=== PATIENT | female | born 1950 | race Caucasian/White ===

== ENCOUNTER 2019-10-19 08:27 | Outpatient (CLI) | payer MEDICARE ==
[~2019-10-19 08:27] MED LIST: FEXO180T
[2019-10-19] MEDS ORDERED: MULT-516 PO (09:08)
[2019-10-19] MEDS ORDERED: MULT-706 PO (09:08)
[2019-10-19] MEDS ORDERED: PANT500T PO (09:08)
[2019-10-19] MEDS ORDERED: SIMV20TA19 PO (09:08)
[2019-10-19] MEDS ORDERED: APPLE CIDER VINEGAR PO (09:08)
[2019-10-19] MEDS ORDERED: BEEF LIVER PO (09:08)
[2019-10-19] MEDS ORDERED: [UNRECOGNIZED DRUG - OTHER] PO (09:08)
[2019-10-19] MEDS ORDERED: CHOL10003 PO (09:08)
[2019-10-19] MEDS ORDERED: [UNRECOGNIZED DRUG - OTHER] PO (09:08)
[2019-10-19] MEDS ORDERED: ACAI500C PO (09:08)
[2019-10-19] MEDS ORDERED: POME250C2 PO (09:08)
[2019-10-19] MEDS ORDERED: ZINC PO (09:08)
[2019-10-19] MEDS ORDERED: CYAN25009 PO (09:08)
[2019-10-19] MEDS ORDERED: GARLIC PO (09:08)
[2019-10-19] MEDS ORDERED: TURM1CAP PO (09:08)
[2019-10-19] MEDS ORDERED: CINN500C2 PO (09:08)
[2019-10-19] MEDS ORDERED: OMEG1CAP25 PO (09:08)
[2019-10-19] MEDS ORDERED: [UNRECOGNIZED DRUG - OTHER] PO (09:08)
== END 2019-10-19 23:59 | disposition home or self-care (01) ==
LOC: STAR 08:27
PROVIDERS: ATTEND Obstetrics & Gynecology Female Pelvic Medicine and Reconstructive Surgery
DX: Z01.818 Encounter for other preprocedural examination (principal); N39.3 Stress incontinence (female) (male); N81.2 Incomplete uterovaginal prolapse; N81.6 Rectocele
CPT/HCPCS: 93005

== ENCOUNTER 2019-10-23 12:29 | Day surgery (SDC) | payer MEDICARE ==
[~2019-10-23] VITALS: Ht 165.1 cm; Wt 70.7 kg
[~2019-10-23 12:29] MED LIST changes: +ACAI500C PO; +APPLE CIDER VINEGAR PO; +BEEF LIVER PO; +BUPIVACAINE/PF 0.25% ONE; +CHOL10003 PO; +CINN500C2 PO; +CYAN25009 PO; +EPINEPHRINE 1 MG/ML, 1ML ONE; +GARLIC PO; +MULT-516 PO; +MULT-706 PO; +NEOMY/POLYMYXIN B GU IRR. 1 ML ONE; +OMEG1CAP25 PO; +PANT500T PO; +POME250C2 PO; +SIMV20TA19 PO; +TURM1CAP PO; +ZINC PO; +[UNRECOGNIZED DRUG - OTHER] PO; +[UNRECOGNIZED DRUG - OTHER] PO; +[UNRECOGNIZED DRUG - OTHER] PO
[2019-10-23 12:54] VITALS: BP 129/80
[2019-10-23] MEDS ORDERED: LACTATED RINGERS 1,000 ML IV SCH (12:55)
[2019-10-23] MEDS ORDERED: GABAPENTIN 300 MG CAPSULE PO STA (12:55)
[2019-10-23] MEDS ORDERED: ACETAMINOPHEN 500 MG TABLET PO STA (12:55)
[2019-10-23] MEDS ORDERED: SCOPOLAMINE 1MG PATCH TD STA (12:58)
[2019-10-23] MEDS ORDERED: ONDANSETRON 2MG/ML, 2ML IVPush STA (13:20)
[2019-10-23] MEDS ORDERED: ONDANSETRON 2MG/ML, 2ML ONE ×2 (13:21→17:08)
[2019-10-23] MEDS ORDERED: MIDAZOLAM 1 MG/ML, 2ML ONE (16:51)
[2019-10-23] MEDS ORDERED: FENTANYL PF 250 MCG/5ML ONE (16:51)
[2019-10-23] MEDS ORDERED: PROPOFOL 50 ML ONE (16:51)
[2019-10-23] MEDS ORDERED: ROCURONIUM 10MG/ML,5ML ONE (17:00)
[2019-10-23] MEDS ORDERED: CEFAZOLIN 1,000 MG ONE (17:00)
[2019-10-23] MEDS ORDERED: SUCCINYLCHOLINE 20 MG/ML, 10ML ONE (17:00)
[2019-10-23] MEDS ORDERED: DEXAMETHASONE 4 MG/ML, 1ML ONE (17:09)
[2019-10-23] MEDS ORDERED: hydrALAzine 20 MG/ML, 1ML IV PRN (17:30)
[2019-10-23] MEDS ORDERED: METOPROLOL 1 MG/ML, 5ML IV PRN (17:30)
[2019-10-23] MEDS ORDERED: ONDANSETRON 2MG/ML, 2ML IV PRN ×2 (17:30→20:30)
[2019-10-23] MEDS ORDERED: DIAZEPAM 5 MG/ML, 2ML IVPush PRN (17:30)
[2019-10-23] MEDS ORDERED: ONDANSETRON ODT 8 MG PO PRN (17:30)
[2019-10-23] MEDS ORDERED: EPHEDRINE 50 MG/ML, 1ML IVPush PRN (17:30)
[2019-10-23] MEDS ORDERED: EPHEDRINE 50 MG/ML, 1ML IM PRN (17:30)
[2019-10-23] MEDS ORDERED: PROMETHAZINE 25 MG/ML, 1ML IV PRN (17:30)
[2019-10-23] MEDS ORDERED: OXYcodone 5 MG/5 ML ORAL.SOL UDC PO PRN (17:30)
[2019-10-23] MEDS ORDERED: FENTANYL PF 100 MCG/2ML IV PRN (17:30)
[2019-10-23] MEDS ORDERED: MIDAZOLAM 1 MG/ML, 2ML IV PRN (17:30)
[2019-10-23] MEDS ORDERED: HYDROmorphone 2 MG/ML, 1ML IVPush PRN (17:30)
[2019-10-23] MEDS ORDERED: FUROSEMIDE 20 MG/2 ML ONE (17:58)
[2019-10-23] MEDS ORDERED: FLUORESCEIN SODIUM 500 MG/5 ML ONE (18:21)
[2019-10-23] MEDS ORDERED: FENTANYL PF 100 MCG/2ML ONE (19:14)
[2019-10-23] MEDS ORDERED: OXYcodone 5 MG/5 ML ORAL.SOL UDC ONE (19:14)
[2019-10-23] MEDS ORDERED: MEPERIDINE/PF 25MG/ML,1ML ONE (19:30)
[2019-10-23] MEDS ORDERED: MEPERIDINE/PF 25MG/0.5ML IVPush PRN (20:00)
[2019-10-23] MEDS ORDERED: HYDROcodone/APAP 5/325 TABLET PO PRN (20:30)
[2019-10-23] MEDS ORDERED: KETOROLAC 30 MG/1 ML IV PRN (20:30)
[2019-10-23] MEDS ORDERED: IBUPROFEN 600 MG TABLET PO PRN (20:30)
[2019-10-23] MEDS ORDERED: OXYcodone/APAP 5/325MG TABLET PO PRN (20:30)
[2019-10-23] MEDS ORDERED: HYDROmorphone 1 MG/ML, 1ML INJ IV PRN (20:30)
== END 2019-10-23 21:35 | disposition home or self-care (01) ==
LOC: OUT 12:29 → 4NE 20:00 → OUT 21:35
PROVIDERS: ATTEND Obstetrics & Gynecology Female Pelvic Medicine and Reconstructive Surgery
DX: N81.2 Incomplete uterovaginal prolapse (principal); R10.2 Pelvic and perineal pain; N39.46 Mixed incontinence; N73.6 Female pelvic peritoneal adhesions (postinfective); N13.5 Crossing vessel and stricture of ureter without hydronephrosis; N72 Inflammatory disease of cervix uteri; N87.9 Dysplasia of cervix uteri, unspecified; N88.8 Other specified noninflammatory disorders of cervix uteri; N80.0 Endometriosis of uterus; D25.0 Submucous leiomyoma of uterus; N94.89 Other specified conditions associated with female genital organs and menstrual cycle; N18.9 Chronic kidney disease, unspecified; E78.5 Hyperlipidemia, unspecified; M19.90 Unspecified osteoarthritis, unspecified site; E04.2 Nontoxic multinodular goiter; Z79.899 Other long term (current) drug therapy; Z98.890 Other specified postprocedural states
CPT/HCPCS: 57265; 57288; 58552; 88307; C1771; J0171; J0330; J0690; J1100; J1940; J2175; J2250; J2405; J2704; J3010; J3490; J7120; G0378